=== PATIENT | male | born 1945 | race Caucasian/White ===

== ENCOUNTER 2021-08-04 13:54 | Inpatient (IN) | payer MEDICARE ==
[~2021-08-04] VITALS: Ht 182.9 cm; Wt 90.0 kg
[~2021-08-04 13:54] MED LIST: ASPI-1265 PO; LOP25T PO; SIMV-42 PO
[2021-08-04] MEDS ORDERED: normal saline 1000ML IV soln IVB ONE (14:15)
[2021-08-04] MEDS ORDERED: metoprolol tartrate 1mg/ml inj IV ONE (14:15)
[2021-08-04 14:34] LABS: BASOPHILS # (AUTO) 0.2 X10'3 (0-0.2); BASOPHILS % (AUTO) 1.1 % (0-1); EOSINOPHILS # (AUTO) 0.2 X10'3 (0-0.9); EOSINOPHILS % (AUTO) 1.6 % (0-6); HEMATOCRIT 41.1 % (42.0-52.0); HEMOGLOBIN 13.7 g/dl (14.0-17.9); LYMPHOCYTES # (AUTO) 1.8 X10'3 (1.1-4.8); LYMPHOCYTES % (AUTO) 12.6 % (21-51); MEAN CORPUSCULAR HEMOGLOBIN 30.1 PG (27.0-31.0); MEAN CORPUSCULAR HGB CONC 33.3 g/dL (33.0-36.5); MEAN CORPUSCULAR VOLUME 90.2 FL (78-98); MEAN PLATELET VOLUME 7.4 FL (7.4-10.4); MONOCYTES # (AUTO) 1.1 X10'3 (0-0.9); MONOCYTES % (AUTO) 7.6 % (2-12); NEUTROPHILS % (AUTO) 77.1 % (42-75); PLATELET COUNT 409 X10'3 (140-440); RED BLOOD COUNT 4.56 X10'6 (4.70-6.10); RED CELL DISTRIBUTION WIDTH 15.4 % (11.5-14.5); WHITE BLOOD COUNT 14.3 X10'3 (4.5-11.0)
[2021-08-04] MEDS ORDERED: furosemide 10 MG/1 ML 10ml inj IV ONE (14:40)
[2021-08-04 14:50] LABS: D-DIMER 4.13 MG/L FEU (0-0.50)
[2021-08-04 14:55] LABS: ALANINE AMINOTRANSFERASE 20 U/L (12-78); ALBUMIN 2.6 G/DL (3.4-5.0); ALBUMIN/GLOBULIN RATIO 0.5 (1.1-1.5); ALKALINE PHOSPHATASE 51 IU/L (46-116); ANION GAP 10 (8-16); ASPARTATE AMINO TRANSFERASE 23 U/L (10-37); BILIRUBIN,TOTAL 0.4 MG/DL (0.1-1.0); BLOOD UREA NITROGEN 11 MG/DL (7-18); BUN/CREATININE RATIO 13.8 (5.4-32.0); CHLORIDE 102 MMOL/L (99-107); GLUCOSE 88 MG/DL (70-104); SODIUM 138 MMOL/L (135-145); TOTAL CARBON DIOXIDE 26.3 MMOL/L (24-32); TOTAL PROTEIN 7.9 G/DL (6.4-8.2); eGFR > 90 ML/MIN
[2021-08-04] MEDS ORDERED: diltiazem-NS 100mg/100ml 100 ML IV SCH (15:00)
[2021-08-04 15:04] LABS: POTASSIUM 4.1 MMOL/L (3.5-5.1)
[2021-08-04] MEDS ORDERED: iohexol 350MG/ML 100ml bottle IV ONE (15:15)
--- NOTE | 2021-08-04 15:19 | NUR ---
spoke to wesly zapata and informed that pt hr is 86 and its normal sinus rythm as per pa repeat the ekg and hold on the diltazem drip .will follow the orders.
--- NOTE | 2021-08-04 16:08 | NUR ---
drawn blood from patient iv and pt requested for warm blanket as he was feeling cold ,nsg student went to give the blanket and pt refused and stated he is feeling hot and pt bld pressure was in 80;s and i was asking the pt how do you feel pt stated i feel hot and he passed out called on radio for help ,glass novelty maker nasra arrived and pt positioned ins upine position,wesly zapata ,dr beckman and laurent pisano at bedside .
--- NOTE | 2021-08-04 16:09 | NUR ---
pt is awake and does not remember the episode of passing out.
--- NOTE | 2021-08-04 16:11 | NUR ---
pt moved to bed 04.
--- NOTE | 2021-08-04 16:17 | NUR ---
pt moved to er bed 4 after possible syncopal episode. pt SBP 80s, per report from GABRIELLE Galan, pt syncopized after drawing blood. pt now awake and alert, SBP 110, 1L fluids infusing, repeat ekg performed. dr. beckman and ELIA Price at bedside.
[2021-08-04] MEDS ORDERED: acetaminophen 325mg tablet PO PRN (17:05)
[2021-08-04] MEDS ORDERED: magnesium 2GM in 50ml NS 50 ML IV PRN (17:05)
[2021-08-04] MEDS ORDERED: magnesium 4gm in 100ml NS 100 ML IV PRN (17:05)
[2021-08-04] MEDS ORDERED: magnesium Cl slow-release 64mg tablet PO PRN (17:05)
[2021-08-04] MEDS ORDERED: potassium Cl 20 mEq SR tablet PO PRN ×2 (17:05)
[2021-08-04] MEDS ORDERED: ondansetron/PF 4mg/2ml inj IV PRN (17:05)
[2021-08-04] MEDS ORDERED: magnesium hydroxide 30ml (MOM) UD suspension PO PRN (17:05)
[2021-08-04] MEDS ORDERED: PERFLUTREN PROTEIN-A MICROSPHR (Optison) 0.22 MG/ML 3ML VIAL IV ONE (17:05)
[2021-08-04] MEDS ORDERED: mag hydrox/Alum hydrox/simeth 30ml oral suspension PO PRN (17:05)
[2021-08-04] MEDS ORDERED: potassium CL 10mEq/100ml bag 100 ML IV PRN (17:05)
[2021-08-04] MEDS ORDERED: normal saline 1000ml 1,000 ML IV SCH (17:05)
--- NOTE | 2021-08-04 17:10 | NUR ---
us at bedside.
[2021-08-04] MEDS ORDERED: PRE5T PO (17:11)
[2021-08-04] MEDS ORDERED: METO25TA6 PO (17:11)
[2021-08-04] MEDS ORDERED: SIMV-42 PO (17:11)
[2021-08-04] MEDS ORDERED: IBUP-1985 PO (17:11)
[2021-08-04] MEDS ORDERED: ibuprofen 200mg tablet PO PRN ×2 (17:25→17:35)
--- NOTE | 2021-08-04 17:40 | NUR ---
pt ambulated to restroom with steady gait, in no distress. denies dizziness, faintness while ambulating.
[2021-08-04 17:41] LABS: MAGNESIUM 1.6 MG/DL (1.5-2.4); POTASSIUM 3.4 MMOL/L (3.5-5.1)
[2021-08-04] MEDS ORDERED: HYDROcodone/acetaminophen 5mg/325mg tablet PO ONE (17:45)
[2021-08-04] MEDS: predniSONE 5mg tablet PO SCH (18:17)
--- NOTE | 2021-08-04 18:24 | NUR ---
report to mary mckeon
[2021-08-04] MEDS: docusate sod 100mg capsule PO SCH (19:01)
[2021-08-04] MEDS: apixaban 5mg tablet PO SCH (19:47)
[2021-08-04] MEDS: K and/or MAG REPLACEMENT MC SCH (19:59)
[2021-08-04] MEDS ORDERED: metoprolol tartrate 50mg tablet PO SCH (20:00)
[2021-08-05] MEDS ORDERED: metoprolol tartrate 25mg tablet PO SCH (07:54)
[2021-08-05] MEDS ORDERED: furosemide 10 MG/1 ML 10ml inj IV SCH (08:00)
[2021-08-05] MEDS ORDERED: atorvastatin 10mg tablet PO SCH (08:00)
[2021-08-05] MEDS: docusate sod 100mg capsule PO SCH (08:01)
[2021-08-05] MEDS: apixaban 5mg tablet PO SCH (08:01)
[2021-08-05] MEDS: predniSONE 5mg tablet PO SCH (09:06)
[2021-08-05] MEDS: K and/or MAG REPLACEMENT MC SCH (09:06)
--- NOTE | 2021-08-05 10:19 | NUR ---
Patient given urinal per request.
[2021-08-05] MEDS ORDERED: APIX5TAB3 PO (11:36)
[2021-08-05] MEDS ORDERED: POTA-207 PO (11:36)
[2021-08-05] MEDS ORDERED: FURO-149 PO (11:36)
[2021-08-05] MEDS ORDERED: METO25TA6 PO (11:36)
--- NOTE | 2021-08-05 13:01 | NUR ---
Pt assessed and treated by Provider for tachycardia. Diagnostics performed, Pt medicated. Pt discharged with new Rxs called into [facility]. Instructed to follow up with PCP within 1 weeks and to return to ED with new or worsening symptoms if needed before that time.
[2021-08-05 13:03] VITALS: BP 106/58
== END 2021-08-05 12:42 | disposition home or self-care (01) | DRG 291 ==
LOC: ER 13:55 → ED HOLD 17:04
PROVIDERS: ADMIT Family Medicine; ATTEND Family Medicine
PROC: B32T1ZZ Computerized Tomography (CT Scan) of Left Pulmonary Artery using Low Osmolar Contrast (ICD-10-PCS; principal; 2021-08-04)
PROC: B3201ZZ Computerized Tomography (CT Scan) of Thoracic Aorta using Low Osmolar Contrast (ICD-10-PCS; 2021-08-04)
PROC: B32S1ZZ Computerized Tomography (CT Scan) of Right Pulmonary Artery using Low Osmolar Contrast (ICD-10-PCS; 2021-08-04)
DX: I11.0 Hypertensive heart disease with heart failure (principal); I50.33 Acute on chronic diastolic (congestive) heart failure; I48.92 Unspecified atrial flutter; J84.10 Pulmonary fibrosis, unspecified; R55 Syncope and collapse; I50.9 Heart failure, unspecified; M06.9 Rheumatoid arthritis, unspecified; Z60.2 Problems related to living alone; D72.829 Elevated white blood cell count, unspecified; E78.00 Pure hypercholesterolemia, unspecified; E78.5 Hyperlipidemia, unspecified; R00.0 Tachycardia, unspecified; R79.89 Other specified abnormal findings of blood chemistry; Z88.2 Allergy status to sulfonamides; Z79.899 Other long term (current) drug therapy
CPT/HCPCS: 36415; 71045; 71275; 80053; 83735; 83880; 84132; 84484; 85025; 85379; 87081; 93005; 93306; 99291; G0378; J1940; J3490; J7030; J7512; Q9967

== ENCOUNTER 2021-09-07 11:29 | Inpatient (IN) | payer MEDICARE ==
[~2021-09-07] VITALS: Ht 188 cm; Wt 81.8 kg
[~2021-09-07 11:29] MED LIST changes: +APIX5TAB3 PO; -ASPI-1265 PO; +FURO-149 PO; +IBUP-1985 PO; -LOP25T PO; +METO25TA6 PO; +PRE5T PO
[2021-09-07 13:06] LABS: BASOPHILS # (AUTO) 0.1 X10'3 (0-0.2); BASOPHILS % (AUTO) 0.6 % (0-1); EOSINOPHILS # (AUTO) 0.1 X10'3 (0-0.9); EOSINOPHILS % (AUTO) 0.5 % (0-6); HEMATOCRIT 37.1 % (42.0-52.0); HEMOGLOBIN 12.2 g/dl (14.0-17.9); LYMPHOCYTES # (AUTO) 0.7 X10'3 (1.1-4.8); LYMPHOCYTES % (AUTO) 5.1 % (21-51); MEAN CORPUSCULAR HEMOGLOBIN 28.7 PG (27.0-31.0); MEAN CORPUSCULAR HGB CONC 32.9 g/dL (33.0-36.5); MEAN CORPUSCULAR VOLUME 87.2 FL (78-98); MEAN PLATELET VOLUME 7.2 FL (7.4-10.4); MONOCYTES # (AUTO) 0.6 X10'3 (0-0.9); MONOCYTES % (AUTO) 4.5 % (2-12); NEUTROPHILS % (AUTO) 89.3 % (42-75); PLATELET COUNT 279 X10'3 (140-440); RED BLOOD COUNT 4.26 X10'6 (4.70-6.10); RED CELL DISTRIBUTION WIDTH 15.9 % (11.5-14.5); WHITE BLOOD COUNT 13.5 X10'3 (4.5-11.0)
[2021-09-07 13:22] LABS: ALANINE AMINOTRANSFERASE 23 U/L (12-78); ALBUMIN 2.3 G/DL (3.4-5.0); ALBUMIN/GLOBULIN RATIO 0.5 (1.1-1.5); ALKALINE PHOSPHATASE 62 IU/L (46-116); ANION GAP 9 (8-16); ASPARTATE AMINO TRANSFERASE 33 U/L (10-37); BILIRUBIN,TOTAL 0.6 MG/DL (0.1-1.0); BLOOD UREA NITROGEN 17 MG/DL (7-18); BUN/CREATININE RATIO 22.1 (5.4-32.0); CHLORIDE 99 MMOL/L (99-107); CREATININE 0.77 MG/DL (0.60-1.10); GLUCOSE 143 MG/DL (70-104); POTASSIUM 3.9 MMOL/L (3.5-5.1); SODIUM 133 MMOL/L (135-145); TOTAL CARBON DIOXIDE 24.8 MMOL/L (24-32); TOTAL PROTEIN 7.4 G/DL (6.4-8.2); eGFR > 90 ML/MIN
[2021-09-07] MEDS ORDERED: furosemide 40mg/4ml inj IV ONE (13:45)
[2021-09-07] MEDS ORDERED: ondansetron/PF 4mg/2ml inj IV PRN (15:05)
[2021-09-07] MEDS ORDERED: morphine 2 MG/ML inj. syringe IV PRN ×2 (15:05)
[2021-09-07] MEDS ORDERED: mag hydrox/Alum hydrox/simeth 30ml oral suspension PO PRN (15:05)
[2021-09-07] MEDS ORDERED: acetaminophen 325mg tablet PO PRN ×2 (15:05)
[2021-09-07] MEDS ORDERED: magnesium hydroxide 30ml (MOM) UD suspension PO PRN (15:05)
--- NOTE | 2021-09-07 18:04 | NUR ---
dr crowell at bedside.
--- NOTE | 2021-09-07 18:51 | NUR ---
ASSUMED CARE OF PT. PT SITTING UP IN BED.
[2021-09-07] MEDS: HYDROcodone/acetaminophen 5mg/325mg tablet PO PRN (19:49)
[2021-09-07] MEDS ORDERED: furosemide 40mg/4ml inj IV SCH (20:00)
[2021-09-07] MEDS: docusate sod 100mg capsule PO SCH (20:00)
[2021-09-07] MEDS ORDERED: METH2.5T55 PO (20:14)
[2021-09-07] MEDS ORDERED: METO-384 PO (20:14)
[2021-09-07] MEDS ORDERED: FOLI1TAB27 PO (20:14)
[2021-09-07] MEDS ORDERED: POTA10TA PO (20:14)
[2021-09-07] MEDS ORDERED: ASPI-611 PO (20:14)
[2021-09-07] MEDS ORDERED: FURO-150 PO (20:14)
[2021-09-08 01:23] LABS: BASOPHILS # (AUTO) 0.1 X10'3 (0-0.2); BASOPHILS % (AUTO) 0.5 % (0-1); EOSINOPHILS # (AUTO) 0.2 X10'3 (0-0.9); EOSINOPHILS % (AUTO) 1.7 % (0-6); HEMATOCRIT 36.3 % (42.0-52.0); HEMOGLOBIN 12.1 g/dl (14.0-17.9); LYMPHOCYTES # (AUTO) 0.9 X10'3 (1.1-4.8); LYMPHOCYTES % (AUTO) 7.8 % (21-51); MEAN CORPUSCULAR HEMOGLOBIN 29.5 PG (27.0-31.0); MEAN CORPUSCULAR HGB CONC 33.4 g/dL (33.0-36.5); MEAN CORPUSCULAR VOLUME 88.1 FL (78-98); MEAN PLATELET VOLUME 7.3 FL (7.4-10.4); MONOCYTES # (AUTO) 0.5 X10'3 (0-0.9); MONOCYTES % (AUTO) 4.6 % (2-12); NEUTROPHILS # (AUTO) 9.8 X10'3 (1.8-7.7); NEUTROPHILS % (AUTO) 85.4 % (42-75); PLATELET COUNT 249 X10'3 (140-440); RED BLOOD COUNT 4.12 X10'6 (4.70-6.10); WHITE BLOOD COUNT 11.5 X10'3 (4.5-11.0)
[2021-09-08 01:27] LABS: ALBUMIN 2.1 G/DL (3.4-5.0); ANION GAP 11 (8-16); BLOOD UREA NITROGEN 19 MG/DL (7-18); BUN/CREATININE RATIO 25.3 (5.4-32.0); CALCIUM 8.9 MG/DL (8.5-10.1); CHLORIDE 100 MMOL/L (99-107); CREATININE 0.75 MG/DL (0.60-1.10); GLUCOSE 117 MG/DL (70-104); POTASSIUM 3.5 MMOL/L (3.5-5.1); SODIUM 136 MMOL/L (135-145); TOTAL CARBON DIOXIDE 25.5 MMOL/L (24-32); eGFR > 90 ML/MIN
--- NOTE | 2021-09-08 03:10 | NUR ---
PT WOKE UP, COUGHED, AND SAT UP TO USE URINAL WHEN HIS HEART RATE SHOT UP TO 170S. HAD NEW EKG TAKEN. PT DENIES ANY CHEST PAIN. CALLED DR REYNOLDS. HE GAVE TELEPHONE ORDER FOR 15 MG CARDIZEM IV NOW, 15 MG CARDIZEM IN 30 MINUTES, AND A CARDIZEM DRIP AT 5 MG/HR 30 MINUTES AFTER THAT IF NO IMPROVEMENT IS OBSERVED.
[2021-09-08] MEDS ORDERED: diltiazem 5mg/ml 5ml inj. IV ONE ×4 (03:15→19:40)
[2021-09-08] MEDS ORDERED: enoxaparin 40mg/0.4ml syringe SUBCUT SCH (08:00)
[2021-09-08] MEDS: docusate sod 100mg capsule PO SCH ×2 (08:17→19:22)
--- NOTE | 2021-09-08 09:30 | NUR ---
Dr. Thapa at bedside. Aware of afib event last night. MD updated that home medications are reconciled.
--- NOTE | 2021-09-08 11:01 | NUR ---
HR in and out of afib and NSR. Rate 70-160s. Dr. Alanis villegas.
--- NOTE | 2021-09-08 11:35 | NUR ---
paged dr crowell
[2021-09-08] MEDS ORDERED: non-formulary drug (Ibuprofen 1 TAB) PO PRN (11:40)
--- NOTE | 2021-09-08 12:25 | NUR ---
paged dr. crowell
--- NOTE | 2021-09-08 12:50 | NUR ---
Spoke with Dr. Thapa regarding afib rate 150s. Cardizem push ordered.
--- NOTE | 2021-09-08 13:19 | NUR ---
Dr Thapa updated on pt condition. No improvement in HR after cardizem IVP. SBP <100. Orders placed for digoxin IVP. Start PO cardizem q6h after SBP >100.
[2021-09-08] MEDS ORDERED: digoxin 250mcg/ml 2ml ampule IV ONE (13:20)
[2021-09-08] MEDS: diltiazem 30mg tablet PO SCH ×2 (14:36→19:25)
--- NOTE | 2021-09-08 16:18 | NUR ---
Patient in room ED 2. I have received report from Tamia ANTHONY and had the opportunity to ask questions and assume patient care.
[2021-09-08] MEDS: HYDROcodone/acetaminophen 5mg/325mg tablet PO PRN (17:04)
[2021-09-08 17:11] VITALS: BP 101/61
--- NOTE | 2021-09-08 17:17 | NUR ---
Patient HR 135-140 Dr Thapa paged. [place] given for gen pain
[2021-09-08 18:00] VITALS: BP 109/69
--- NOTE | 2021-09-08 18:42 | NUR ---
DR Thapa repaged awaiting call back HR 134.
--- NOTE | 2021-09-08 18:49 | NUR ---
Problems reprioritized. Patient report given, questions answered & plan of care reviewed with erica ANTHONY.
[2021-09-08] MEDS: atorvastatin 10mg tablet PO SCH (19:22)
[2021-09-08] MEDS: predniSONE 5mg tablet PO SCH (19:22)
[2021-09-08] MEDS: apixaban 5mg tablet PO SCH (19:22)
[2021-09-08 19:29] VITALS: BP 115/66
[2021-09-08 22:00] VITALS: BP 120/67
[2021-09-08] MEDS ORDERED: diltiazem-D5W 125mg/125ml 125 ML IV SCH (22:05)
[2021-09-08] MEDS ORDERED: diltiazem-NS 100mg/100ml 100 ML IV SCH (22:15)
[2021-09-09] MEDS: diltiazem 30mg tablet PO SCH ×3 (01:49→15:20)
[2021-09-09 02:00] VITALS: BP 117/55
--- NOTE | 2021-09-09 02:07 | NUR ---
RN assumed care @185. Pt sitting up at edge of bed, pt dyspneic and tachypnea. on 6 L NC O2 80-90%. HR 130s-140s. RT paged. Pt placed on 12 L high flow NC. pt given PO cardizem and eliquis. made aware x1 10IV cardizem ordered and given @2025. Respirations improved, HR improved slightly. repaged around 2230. HR remains elevated. Order to start pt on 5mg IV gtt cardizem. Pt also given 1mg mnorphine for generalized back and knee pain unrelieved by previous PO norco. repaged @020. HR beginning to rise 130s. BP 107/63. Telephone order to increase gtt to 7.5mg/hr. pt remains on 13L highflow NC. call light within reach. wckarine Addendum: 09/09/21 at 0448 by Cassie Westbrooker RN pt converted back to sinus rhythm @041, MD French made aware. telephone order to stop gtt @0800am. order placed. BP 124/59 , HR 90s. pt remains on cycling BP, will monitor BP and HR and update as needed.
[2021-09-09] MEDS ORDERED: diltiazem-NS 100mg/100ml 100 ML IV SCH (02:10)
[2021-09-09 06:00] VITALS: BP 115/65
--- NOTE | 2021-09-09 06:21 | NUR ---
Patient in room PCU 3023. I have received report from and had the opportunity to ask questions and assume patient care.
--- NOTE | 2021-09-09 06:24 | NUR ---
Patient in room PCU 3023. I have received report from Ofelia ANTHONY and had the opportunity to ask questions and assume patient care.
[2021-09-09 07:30] LABS: BASOPHILS % (AUTO) 0.2 % (0-1); EOSINOPHILS % (AUTO) 0.3 % (0-6); HEMATOCRIT 35.3 % (42.0-52.0); HEMOGLOBIN 11.5 g/dl (14.0-17.9); LYMPHOCYTES # (AUTO) 0.8 X10'3 (1.1-4.8); LYMPHOCYTES % (AUTO) 5.6 % (21-51); MEAN CORPUSCULAR HEMOGLOBIN 28.6 PG (27.0-31.0); MEAN CORPUSCULAR HGB CONC 32.7 g/dL (33.0-36.5); MEAN CORPUSCULAR VOLUME 87.7 FL (78-98); MEAN PLATELET VOLUME 7.8 FL (7.4-10.4); MONOCYTES # (AUTO) 0.7 X10'3 (0-0.9); MONOCYTES % (AUTO) 5.1 % (2-12); NEUTROPHILS # (AUTO) 12.7 X10'3 (1.8-7.7); NEUTROPHILS % (AUTO) 88.8 % (42-75); PLATELET COUNT 274 X10'3 (140-440); RED BLOOD COUNT 4.02 X10'6 (4.70-6.10); WHITE BLOOD COUNT 14.3 X10'3 (4.5-11.0)
[2021-09-09] MEDS: apixaban 5mg tablet PO SCH ×2 (07:32→19:53)
[2021-09-09] MEDS: docusate sod 100mg capsule PO SCH ×2 (07:32→19:53)
[2021-09-09] MEDS: potassium chloride 10mEq ER tablet PO SCH (07:32)
[2021-09-09] MEDS: predniSONE 5mg tablet PO SCH (07:32)
[2021-09-09] MEDS: aspirin 81mg tab.chew PO SCH (07:32)
[2021-09-09] MEDS: metoprolol succinate 25mg (24-HOUR) SR. Tablet PO SCH (07:32)
[2021-09-09] MEDS: folic acid 1mg tablet PO SCH (07:32)
[2021-09-09 07:46] LABS: ALBUMIN 1.9 G/DL (3.4-5.0); ANION GAP 9 (8-16); BLOOD UREA NITROGEN 17 MG/DL (7-18); BUN/CREATININE RATIO 25.4 (5.4-32.0); CALCIUM 8.5 MG/DL (8.5-10.1); CHLORIDE 103 MMOL/L (99-107); CREATININE 0.67 MG/DL (0.60-1.10); GLUCOSE 112 MG/DL (70-104); POTASSIUM 4.1 MMOL/L (3.5-5.1); SODIUM 138 MMOL/L (135-145); TOTAL CARBON DIOXIDE 25.9 MMOL/L (24-32); eGFR > 90 ML/MIN
[2021-09-09 11:00] VITALS: BP 115/54
[2021-09-09 15:00] VITALS: BP 112/56
[2021-09-09 18:00] VITALS: BP 113/60
--- NOTE | 2021-09-09 18:30 | NUR ---
Problems reprioritized. Patient report given, questions answered & plan of care reviewed with Ofelia ANTHONY.
[2021-09-09] MEDS: HYDROcodone/acetaminophen 5mg/325mg tablet PO PRN (19:52)
[2021-09-09] MEDS ORDERED: dexamethasone inj 6 MG in dextrose 5%-water 100 ML IV SCH (20:00)
[2021-09-09] MEDS: atorvastatin 10mg tablet PO SCH (20:06)
[2021-09-09 22:30] VITALS: BP 131/59
[2021-09-10 02:39] VITALS: BP 109/58
[2021-09-10 06:00] VITALS: BP 126/63
--- NOTE | 2021-09-10 06:21 | NUR ---
Patient in room PCU 3023. I have received report from Cassie ANTHONY and had the opportunity to ask questions and assume patient care.
[2021-09-10 07:16] LABS: BASOPHILS % (AUTO) 0.1 % (0-1); EOSINOPHILS % (AUTO) 0 % (0-6); HEMATOCRIT 34.5 % (42.0-52.0); HEMOGLOBIN 11.5 g/dl (14.0-17.9); LYMPHOCYTES # (AUTO) 0.6 X10'3 (1.1-4.8); LYMPHOCYTES % (AUTO) 5.6 % (21-51); MEAN CORPUSCULAR HEMOGLOBIN 29.6 PG (27.0-31.0); MEAN CORPUSCULAR HGB CONC 33.5 g/dL (33.0-36.5); MEAN CORPUSCULAR VOLUME 88.4 FL (78-98); MEAN PLATELET VOLUME 7.5 FL (7.4-10.4); MONOCYTES # (AUTO) 0.2 X10'3 (0-0.9); MONOCYTES % (AUTO) 2.4 % (2-12); NEUTROPHILS # (AUTO) 9.3 X10'3 (1.8-7.7); NEUTROPHILS % (AUTO) 91.9 % (42-75); PLATELET COUNT 291 X10'3 (140-440); RED CELL DISTRIBUTION WIDTH 15.4 % (11.5-14.5); WHITE BLOOD COUNT 10.1 X10'3 (4.5-11.0)
[2021-09-10 07:36] LABS: ALBUMIN 1.9 G/DL (3.4-5.0); ANION GAP 6 (8-16); BLOOD UREA NITROGEN 18 MG/DL (7-18); BUN/CREATININE RATIO 28.1 (5.4-32.0); CALCIUM 8.8 MG/DL (8.5-10.1); CHLORIDE 103 MMOL/L (99-107); CREATININE 0.64 MG/DL (0.60-1.10); GLUCOSE 150 MG/DL (70-104); POTASSIUM 4.9 MMOL/L (3.5-5.1); SODIUM 137 MMOL/L (135-145); TOTAL CARBON DIOXIDE 28.1 MMOL/L (24-32); eGFR > 90 ML/MIN
[2021-09-10] MEDS: dexamethasone 4mg/ml inj IV SCH ×2 (08:56→20:48)
[2021-09-10] MEDS: aspirin 81mg tab.chew PO SCH (08:57)
[2021-09-10] MEDS: potassium chloride 10mEq ER tablet PO SCH (08:57)
[2021-09-10] MEDS: folic acid 1mg tablet PO SCH (08:58)
[2021-09-10] MEDS: apixaban 5mg tablet PO SCH ×2 (08:58→20:48)
[2021-09-10] MEDS: metoprolol succinate 25mg (24-HOUR) SR. Tablet PO SCH (08:58)
[2021-09-10] MEDS: docusate sod 100mg capsule PO SCH ×2 (08:59→20:46)
[2021-09-10 18:00] VITALS: BP 111/58
--- NOTE | 2021-09-10 18:45 | NUR ---
Patient in room PCU 3023B. I have received report from Sunshine ANTHONY and had the opportunity to ask questions and assume patient care.
[2021-09-10] MEDS: atorvastatin 10mg tablet PO SCH (20:48)
[2021-09-10] MEDS: HYDROcodone/acetaminophen 5mg/325mg tablet PO PRN (20:48)
[2021-09-10 22:00] VITALS: BP 113/61
[2021-09-11 06:00] VITALS: BP 100/57
--- NOTE | 2021-09-11 06:30 | NUR ---
Patient in room PCU 3023. I have received report from Scarlet ANTHONY and had the opportunity to ask questions and assume patient care.
[2021-09-11 07:46] LABS: ALBUMIN 1.8 G/DL (3.4-5.0); ANION GAP 1 (8-16); BLOOD UREA NITROGEN 22 MG/DL (7-18); BUN/CREATININE RATIO 34.9 (5.4-32.0); CALCIUM 8.8 MG/DL (8.5-10.1); CHLORIDE 106 MMOL/L (99-107); CREATININE 0.63 MG/DL (0.60-1.10); GLUCOSE 153 MG/DL (70-104); SODIUM 138 MMOL/L (135-145); TOTAL CARBON DIOXIDE 31.2 MMOL/L (24-32); eGFR > 90 ML/MIN
[2021-09-11 07:47] LABS: BASOPHILS % (AUTO) 0.1 % (0-1); EOSINOPHILS % (AUTO) 0 % (0-6); HEMATOCRIT 33.9 % (42.0-52.0); HEMOGLOBIN 10.9 g/dl (14.0-17.9); LYMPHOCYTES # (AUTO) 0.6 X10'3 (1.1-4.8); LYMPHOCYTES % (AUTO) 5.7 % (21-51); MEAN CORPUSCULAR HEMOGLOBIN 28.2 PG (27.0-31.0); MEAN CORPUSCULAR HGB CONC 32.1 g/dL (33.0-36.5); MEAN CORPUSCULAR VOLUME 88.1 FL (78-98); MONOCYTES # (AUTO) 0.6 X10'3 (0-0.9); MONOCYTES % (AUTO) 5.1 % (2-12); NEUTROPHILS # (AUTO) 10.1 X10'3 (1.8-7.7); NEUTROPHILS % (AUTO) 89.1 % (42-75); PLATELET COUNT 347 X10'3 (140-440); RED BLOOD COUNT 3.85 X10'6 (4.70-6.10); RED CELL DISTRIBUTION WIDTH 15.5 % (11.5-14.5); WHITE BLOOD COUNT 11.3 X10'3 (4.5-11.0)
--- NOTE | 2021-09-11 09:20 | NUR ---
Initial: Pt admitted w/ decompensated heart failure and acute respiratory failure per EMR; on 10L HF oxygen. Currently on Heart Healthy diet w/ 100% intake of most recent meals meeting est nutrient needs at this time. LBM 09/08 receiving routine colace. No nutrition intervention implemented at this time, will continue to monitor. Recs; 1. Continue Heart Healthy diet as tolerated 2. Bowel care per rx 3. Weekly wts Addendum: 09/11/21 at [address] Amended: Links added.
[2021-09-11] MEDS: metoprolol succinate 25mg (24-HOUR) SR. Tablet PO SCH (10:47)
[2021-09-11] MEDS: potassium chloride 10mEq ER tablet PO SCH (10:47)
[2021-09-11] MEDS: folic acid 1mg tablet PO SCH (10:47)
[2021-09-11] MEDS: apixaban 5mg tablet PO SCH ×2 (10:47→19:27)
[2021-09-11] MEDS: dexamethasone 4mg/ml inj IV SCH ×2 (10:47→19:27)
[2021-09-11] MEDS: docusate sod 100mg capsule PO SCH ×2 (10:47→19:27)
[2021-09-11] MEDS: aspirin 81mg tab.chew PO SCH (10:47)
[2021-09-11 11:00] VITALS: BP 114/60
[2021-09-11 15:00] VITALS: BP 143/64
[2021-09-11] MEDS: atorvastatin 10mg tablet PO SCH (19:27)
--- NOTE | 2021-09-11 19:57 | NUR ---
Problems reprioritized. Patient report given, questions answered & plan of care reviewed with Homer ANTHONY.
[2021-09-12 02:00] VITALS: BP 130/62
[2021-09-12 06:00] VITALS: BP 118/70
[2021-09-12 06:51] LABS: BASOPHILS % (AUTO) 0.1 % (0-1); EOSINOPHILS % (AUTO) 0.1 % (0-6); HEMATOCRIT 34.7 % (42.0-52.0); HEMOGLOBIN 11.4 g/dl (14.0-17.9); LYMPHOCYTES # (AUTO) 1.2 X10'3 (1.1-4.8); MEAN CORPUSCULAR HEMOGLOBIN 28.9 PG (27.0-31.0); MEAN CORPUSCULAR HGB CONC 32.7 g/dL (33.0-36.5); MEAN CORPUSCULAR VOLUME 88.2 FL (78-98); MEAN PLATELET VOLUME 7.7 FL (7.4-10.4); MONOCYTES % (AUTO) 7.6 % (2-12); NEUTROPHILS # (AUTO) 10.7 X10'3 (1.8-7.7); NEUTROPHILS % (AUTO) 83.2 % (42-75); PLATELET COUNT 379 X10'3 (140-440); RED BLOOD COUNT 3.93 X10'6 (4.70-6.10); RED CELL DISTRIBUTION WIDTH 15.7 % (11.5-14.5); WHITE BLOOD COUNT 12.8 X10'3 (4.5-11.0)
[2021-09-12 07:02] LABS: ALBUMIN 1.9 G/DL (3.4-5.0); ANION GAP 5 (8-16); BLOOD UREA NITROGEN 21 MG/DL (7-18); BUN/CREATININE RATIO 36.2 (5.4-32.0); CALCIUM 8.9 MG/DL (8.5-10.1); CHLORIDE 102 MMOL/L (99-107); CREATININE 0.58 MG/DL (0.60-1.10); GLUCOSE 116 MG/DL (70-104); POTASSIUM 3.9 MMOL/L (3.5-5.1); SODIUM 137 MMOL/L (135-145); TOTAL CARBON DIOXIDE 30.5 MMOL/L (24-32); eGFR > 90 ML/MIN
[2021-09-12] MEDS: docusate sod 100mg capsule PO SCH ×2 (08:48→20:53)
[2021-09-12] MEDS: potassium chloride 10mEq ER tablet PO SCH (08:48)
[2021-09-12] MEDS: aspirin 81mg tab.chew PO SCH (08:49)
[2021-09-12] MEDS: folic acid 1mg tablet PO SCH (08:49)
[2021-09-12] MEDS: apixaban 5mg tablet PO SCH ×2 (08:49→20:53)
[2021-09-12] MEDS: metoprolol succinate 25mg (24-HOUR) SR. Tablet PO SCH (08:49)
[2021-09-12] MEDS: dexamethasone 4mg/ml inj IV SCH ×2 (08:49→20:52)
[2021-09-12 11:00] VITALS: BP 118/63
[2021-09-12 15:00] VITALS: BP 110/57
[2021-09-12 18:00] VITALS: BP 118/59
[2021-09-12] MEDS ORDERED: amLODIPine 2.5mg tablet PO SCH (18:55)
--- NOTE | 2021-09-12 19:00 | NUR ---
Pt experienced 5 run of v-tach, covering provider notified. Order for K and Mg placed. Will continue to follow up. Pt resting comfortably in bed, denies any chest, nausea or distress. Vital signs wnl.
[2021-09-12 19:36] LABS: MAGNESIUM 2.1 MG/DL (1.5-2.4); POTASSIUM 4.2 MMOL/L (3.5-5.1)
[2021-09-12] MEDS: HYDROcodone/acetaminophen 5mg/325mg tablet PO PRN (20:53)
[2021-09-12] MEDS: atorvastatin 10mg tablet PO SCH (20:53)
[2021-09-12] MEDS ORDERED: Melatonin 3mg tablet PO PRN (21:10)
[2021-09-12 22:30] VITALS: BP 127/59
[2021-09-13 02:00] VITALS: BP 115/53
--- NOTE | 2021-09-13 06:30 | NUR ---
Patient in room PCU 3023. I have received report from Reid ANTHONY and had the opportunity to ask questions and assume patient care. Patient resting in bed in no acute distress.
[2021-09-13 07:00] VITALS: BP 130/64
--- NOTE | 2021-09-13 09:25 | NUR ---
morning meds given late due to primary RN assisting with cardioversion on another patient
[2021-09-13] MEDS: folic acid 1mg tablet PO SCH (09:53)
[2021-09-13] MEDS: potassium chloride 10mEq ER tablet PO SCH (09:53)
[2021-09-13] MEDS: aspirin 81mg tab.chew PO SCH (09:53)
[2021-09-13] MEDS: apixaban 5mg tablet PO SCH (09:54)
[2021-09-13] MEDS: docusate sod 100mg capsule PO SCH (09:54)
[2021-09-13] MEDS: dexamethasone 4mg/ml inj IV SCH (09:54)
[2021-09-13] MEDS: metoprolol succinate 25mg (24-HOUR) SR. Tablet PO SCH (09:54)
[2021-09-13 11:00] VITALS: BP 132/67
--- NOTE | 2021-09-13 14:03 | NUR ---
pt refused physical therapy today per PT staff
[2021-09-13] MEDS ORDERED: OXYC-658 PO (14:07)
[2021-09-13 15:00] VITALS: BP 128/64
--- NOTE | 2021-09-13 17:16 | NUR ---
Patient was DC to home and picked up by family. PIV was removed with cannula intact. RX was escripted to [facility]. DC instructions and warning s/s were reviewed with the patient and he verbalized understanding. Patient was alert, oriented, and appropriate at time of DC. All belongings were sent with patient. Patient was wheeled to lobby.
[2021-09-13] MEDS ORDERED: Melatonin 3mg tablet PO SCH (21:00)
== END 2021-09-13 17:15 | disposition hospice, home (50) | DRG 189 ==
LOC: ER 11:30 → ED HOLD 15:05 → PCU 3S 09-08 16:27
PROVIDERS: ADMIT Internal Medicine; ATTEND Internal Medicine
PROC: 5A0945A Assistance with Respiratory Ventilation, 24-96 Consecutive Hours, High Flow/Velocity Cannula (ICD-10-PCS; principal; 2021-09-08)
DX: J96.01 Acute respiratory failure with hypoxia (principal); E43 Unspecified severe protein-calorie malnutrition; I50.9 Heart failure, unspecified; E78.00 Pure hypercholesterolemia, unspecified; Z20.822 Contact with and (suspected) exposure to COVID-19; J84.10 Pulmonary fibrosis, unspecified; I27.81 Cor pulmonale (chronic); Z60.2 Problems related to living alone; I48.0 Paroxysmal atrial fibrillation; I11.0 Hypertensive heart disease with heart failure; E78.5 Hyperlipidemia, unspecified; Z79.01 Long term (current) use of anticoagulants; Z79.82 Long term (current) use of aspirin; Z79.899 Other long term (current) drug therapy; Z68.23 Body mass index [BMI] 23.0-23.9, adult; Z88.2 Allergy status to sulfonamides; Z88.8 Allergy status to other drugs, medicaments and biological substances; I27.20 Pulmonary hypertension, unspecified
CPT/HCPCS: 36415; 71045; 71046; 80048; 80053; 83735; 83880; 84132; 84145; 84484; 85025; 87635; 94760; 97116; 97161; 97530; 99285; G0378; J1100; J1160; J1650; J1940; J2270; J3490; J7060; J7512